=== PATIENT | female | born 1970 | race Caucasian/White ===

== ENCOUNTER 2016-09-21 16:47 | Emergency (ER) | payer OTHER ==
[2016-09-21 18:48] LABS: HEMOGLOBIN 13.9 gm/dl (12.3-15.3); RED BLOOD COUNT 4.81 M/UL (4.00-5.10); WHITE BLOOD COUNT 8.2 K/UL (4.5-11.0)
[2016-09-21 19:08] LABS: BUN/CREATININE RATIO 20 (0-10)
[2016-10-19] MEDS ORDERED: ZOLOFT50 MG PO (15:22)
[2016-10-21] MEDS ORDERED: PAXIL10 MG PO (10:57)
[2016-10-21] MEDS ORDERED: ABILIFY2 MG PO (10:57)
[2016-10-21] MEDS ORDERED: METOPROLOL TART25 MG PO (10:58)
== END 2016-09-22 00:20 | disposition home or self-care (01) ==
LOC: ER1 16:47
PROVIDERS: Specialist/Technologist Athletic Trainer
DX: R55 Syncope and collapse (principal); F41.9 Anxiety disorder, unspecified; Z79.899 Other long term (current) drug therapy
CPT/HCPCS: 36415; 70450; 71010; 80053; 80307; 81001; 82550; 82553; 83874; 84484; 85025; 85379; 87086; 93005; 96374; 99284; J2060

== ENCOUNTER 2016-09-30 10:11 | Emergency (ER) | payer OTHER ==
[2016-09-30 11:12] LABS: HEMOGLOBIN 13.8 gm/dl (12.3-15.3); RED BLOOD COUNT 4.72 M/UL (4.00-5.10); WHITE BLOOD COUNT 6.9 K/UL (4.5-11.0)
[2016-09-30 11:28] LABS: BUN/CREATININE RATIO 13 (0-10)
[2016-10-19] MEDS ORDERED: ZOLOFT50 MG PO (15:22)
[2016-10-21] MEDS ORDERED: PAXIL10 MG PO (10:57)
[2016-10-21] MEDS ORDERED: ABILIFY2 MG PO (10:57)
[2016-10-21] MEDS ORDERED: METOPROLOL TART25 MG PO (10:58)
== END 2016-09-30 17:00 | disposition home or self-care (01) ==
LOC: ER1 10:11
PROVIDERS: Emergency Medicine
DX: R55 Syncope and collapse (principal); F41.1 Generalized anxiety disorder; Z90.49 Acquired absence of other specified parts of digestive tract
CPT/HCPCS: 36415; 70450; 71020; 80053; 81001; 82550; 82553; 83690; 83874; 83880; 84484; 85025; 85379; 87086; 93005; 99284; J7030

== ENCOUNTER 2020-05-21 19:16 | Emergency (ER) | payer MEDICARE, OTHER ==
[~2020-05-21 19:16] MED LIST: ABILIFY2 MG PO; METOPROLOL TART25 MG PO; PAXIL10 MG PO; ZOLOFT50 MG PO
[2020-05-22] MEDS ORDERED: CYCLOBENZAPRINE10 MG PO ×2 (00:40→00:42)
[2020-05-22] MEDS ORDERED: IBUPROFEN800 MG PO ×2 (00:40→00:42)
== END 2020-05-22 01:30 | disposition home or self-care (01) ==
LOC: ER1 19:16
DX: S30.0XXA Contusion of lower back and pelvis, initial encounter (principal); M25.562 Pain in left knee; I10 Essential (primary) hypertension; Z88.1 Allergy status to other antibiotic agents; W19.XXXA Unspecified fall, initial encounter
CPT/HCPCS: 72131; 72192; 73562; 96374; 99284; J1885

== ENCOUNTER → 2020-09-25 | Outpatient (CLI) | payer MEDICARE, OTHER ==
[~2020-09-25] MED LIST changes: +CYCLOBENZAPRINE10 MG PO; +IBUPROFEN800 MG PO
== END ==
LOC: EXRD 09:13
DX: R74.8 Abnormal levels of other serum enzymes (principal); Z90.49 Acquired absence of other specified parts of digestive tract; K76.0 Fatty (change of) liver, not elsewhere classified
CPT/HCPCS: 76705

== ENCOUNTER → 2021-08-30 | Outpatient (CLI) | payer MEDICARE, OTHER | LOC: LAB 16:27 | DX: Z20.822 Contact with and (suspected) exposure to COVID-19 (principal) | CPT/HCPCS: U0003 ==

== ENCOUNTER → 2021-09-25 | Outpatient (CLI) | payer MEDICARE, OTHER | LOC: LAB 15:21 | DX: Z20.822 Contact with and (suspected) exposure to COVID-19 (principal) | CPT/HCPCS: U0003 ==

== ENCOUNTER 2021-11-28 17:29 | Emergency (ER) | payer MEDICARE, OTHER | END 2021-11-28 22:23 | disposition home or self-care (01) | LOC: ER1 17:29 | DX: H57.89 Other specified disorders of eye and adnexa (principal); I10 Essential (primary) hypertension | CPT/HCPCS: 99283 ==